=== PATIENT | male | born 1990 | race Caucasian/White ===

== ENCOUNTER 2021-02-14 19:49 | Inpatient (IN) | payer MEDICAID, SELFPAY ==
[2021-02-14 19:50] VITALS: BP 138/60; PULSE 87; RESP 16; TEMP 36.2; O2SAT 100; BMI 22.4
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
--- NOTE | 2021-02-14 21:22 | RAD_ITS ---
STUDY: X-RAY - RIGHT CLAVICLE REASON FOR EXAM: Male, 31 years old. Acute pain after trauma TECHNIQUE: 2 view(s) of the clavicle. COMPARISON: None. FINDINGS: Acute, comminuted, overlapped fracture in the midshaft of the right clavicle with soft tissue swelling Normal acromioclavicular articulation. Normal visualized sternoclavicular articulation. Normal visualized pulmonary apex. RAD/Clavicle IMPRESSION: Acute comminuted overlapped fracture in the mid right clavicle with soft tissue swelling Electronically Signed: Je Patricio MD at 22:00 EDT , Service support ,
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
[2021-02-14] MEDS: Ibuprofen 600 MG Tablet PO (21:41)
[2021-02-14] MEDS: Morphine 4 MG/ML Syringe IM (21:41)
[2021-02-14] MEDS: Diphth,Pertuss(Acell),Tet Vac 0.5 ML Vial IM (21:42)
[2021-02-14] MEDS: Morphine 4 MG/ML Syringe IV (22:18)
[2021-02-14 22:28] LABS: Absolute Lymphocyte Count 0.72 X10^3/uL (0.83-4.51); Absolute Neutrophil Count 12.2 X10^3/uL (2.0-7.7); Basophil# 0.02 X10^3/uL; Basophil% 0.1 % (0-1); Eosinophil# 0.04 X10^3/uL; Eosinophils% 0.3 % (0-5); Lymphocyte # 0.72 X10^3/ul (0.83-4.51); Lymphocyte % 5.1 % (19-41); Mean Corp Hgb Conc 33.3 g/dL (32-36); Mean Corpuscular Hgb 30.1 pg (27.0-32.0); Mean Corpuscular Volume 90.3 fL (80-94); Mean Platelet Vol. 10.7 fl (6.2-12.0); Monocyte# 0.92 X10^3/uL; Monocyte% 6.6 % (0-10); NRBC Flagged by Analyzer 0 % (0-5); Neutrophil # 12.23 X10^3/uL (2.7-7.7); Neutrophil % 87.5 % (47-70); Platelet Count 242 K/mm3 (150-450); RBC Distribution Width CV 12.1 % (11.6-14.6); RBC Distribution Width SD 40.4 fl (35.1-43.9); Red Blood Count 4.32 M/mm3 (4.6-6.2)
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
[2021-02-14 22:36] LABS: Anion Gap 5 (5-15); BUN 14 mg/dL (7-18); BUN/Creat Ratio 18.6 RATIO (10-20); Calcium,Total 8.2 mg/dL (8.5-10.1); Chloride 105 mmol/L (98-107); Creatinine, Serum 0.75 mg/dL (0.70-1.30); EST Glomerular Filtration Rate 128 mL/min (>60); Est Glom Filt Rate - Afr Amer 154 mL/min (>60); Estimated Creatinine Clearance 150.38 ml/min; Glucose 113 mg/dL (74-106); Sodium Level 138 mmol/L (136-145)
[2021-02-14 23:33] VITALS: BP 128/59; PULSE 74; RESP 16; TEMP 36.6; O2SAT 99
[2021-02-15] VITALS (12 sets, daily range): BP systolic 113–139; BP diastolic 72–101; PULSE 56–87; RESP 14–18; TEMP 36.5–37.2; O2SAT 94–100; BMI 21.6
[2021-02-15] MEDS: 0.9% Saline Lock 10 ML Syringe IV ×5 (00:19→17:57)
[2021-02-15] MEDS: 0.9% Normal Saline 1,000 ML 100 ML IV ×2 (00:19→10:20)
[2021-02-15] MEDS: Morphine 2 MG/ML Syringe IV ×5 (00:19→16:04)
--- NOTE | 2021-02-15 06:00 | EKG12_ITS ---
Test Reason : PRE-OP Blood Pressure : / mmHG Vent. Rate : 083 BPM Atrial Rate : 083 BPM P-R Int : 120 ms QRS Dur : 098 ms QT Int : 374 ms P-R-T Axes : 062 063 058 degrees QTc Int : 439 ms Normal sinus rhythm Voltage criteria for left ventricular hypertrophy Abnormal ECG No previous ECGs available Confirmed by FLOYD GRANT, GONZALO ([id number]), scientific editor NOMI NGUYEN ([id number]) on 02/17/2021 2:03:27 PM Referred By: YANETH Confirmed By:TYSON BARRIENTOS MD
[2021-02-15 06:44] LABS: Absolute Lymphocyte Count 1.32 X10^3/uL (0.83-4.51); Absolute Neutrophil Count 6.3 X10^3/uL (2.0-7.7); Basophil# 0.01 X10^3/uL; Basophil% 0.1 % (0-1); Eosinophil# 0.14 X10^3/uL; Eosinophils% 1.6 % (0-5); Hematocrit 35.6 % (40-54); Hemoglobin 11.7 g/dL (13.0-16.5); Lymphocyte # 1.32 X10^3/ul (0.83-4.51); Lymphocyte % 15.4 % (19-41); Mean Corp Hgb Conc 32.9 g/dL (32-36); Mean Corpuscular Hgb 29.8 pg (27.0-32.0); Mean Corpuscular Volume 90.8 fL (80-94); Mean Platelet Vol. 10.6 fl (6.2-12.0); Monocyte# 0.74 X10^3/uL; Monocyte% 8.7 % (0-10); NRBC Flagged by Analyzer 0 % (0-5); Neutrophil # 6.32 X10^3/uL (2.7-7.7); Platelet Count 197 K/mm3 (150-450); RBC Distribution Width CV 12.4 % (11.6-14.6); RBC Distribution Width SD 41.1 fl (35.1-43.9); Red Blood Count 3.92 M/mm3 (4.6-6.2); White Blood Count 8.6 K/mm3 (4.4-11.0)
[2021-02-15 07:17] LABS: ALB/GLOB Ratio 1.1 RATIO (0.9-2.4); AST(SGOT) 21 U/L (15-37); Alanine Aminotransfer ALT/SGPT 26 U/L (16-61); Albumin, Serum 3.1 g/dL (3.2-5.0); Alkaline Phosphatase 46 U/L (45-117); Anion Gap 6 (5-15); BUN 11 mg/dL (7-18); Calcium,Total 7.9 mg/dL (8.5-10.1); Chloride 105 mmol/L (98-107); Creatinine, Serum 0.73 mg/dL (0.70-1.30); EST Glomerular Filtration Rate 132 mL/min (>60); Est Glom Filt Rate - Afr Amer 159 mL/min (>60); Estimated Creatinine Clearance 144.45 ml/min; Globulin 2.7 g/dL (2.2-4.2); Glucose 109 mg/dL (74-106); Potassium 3.3 mmol/L (3.5-5.1); Protein, Total 5.8 g/dL (6.4-8.2); Sodium Level 139 mmol/L (136-145)
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
--- NOTE | 2021-02-15 10:30 | CASEMGMT ---
RN SUN Face to Face with patient for initial transition planning/care coordination assessment. RN CM introduced self and role at [facility]. Patient lying in bed, alert and oriented, family at bedside. Patient willing to participate in assessment and is able to answer all questions appropriately. Care providers, pharmacy, and demographics verified. Patient wishes to discharge home, will monitor for HHC vs outpatient pending progress with therapy. Patient states he has no further needs or concerns at this time. CM to follow for discharge planning needs that may arise. PCP: None, CM to provide patient with list Specialists: none Preferred Pharmacy: [facility] Insurance: [place] Prescription Benefit: yes Living Will/HPOA: none LNOK: mother, significant other Living Arrangements: Patient lives alone in a single story home with 2 steps and railing to enter. Significant other able to stay with patient. Patient is independent at home. Transportation: Family DME/HHC: paitent states he has an adjustable bed at home, denies other DME. Will monitor for DME, HHC vs Outpt therapy pending progress with therapy after surgery. Disposition Plan: HHC vs outpatient therapy Daysi LUCERO, RN, CM
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
[2021-02-15] MEDS: Cefazolin 2 GM in 0.9% Normal Saline 100 ML IV (12:00)
--- NOTE | 2021-02-15 12:00 | RAD_ITS ---
STUDY: X-RAY - RIGHT HIP REASON FOR EXAM: Male, 31 years old. GAMMA NAIL TECHNIQUE: 7 images. 117 seconds of fluoroscopy time. COMPARISON: None. FINDINGS: Fluoroscopic images demonstrate placement of fixation screw medullary fernando of the proximal femur spanning IT fracture. Gross radiographic alignment. Distal interlocking screw. RAD/Hip Min 2 Views (Portable) IMPRESSION: Fluoroscopic guidance for right IT fracture fixation. Electronically Signed: Berny Gay MD (Brooks) at 14:22 EDT , Service support ,
--- NOTE | 2021-02-15 12:09 | NURSING ---
1045, OFF UNIT VIA BED FOR SCHEDULED SURGERY
[2021-02-15] MEDS: oxyCODONE 5 MG Tablet PO ×2 (15:45→19:38)
--- NOTE | 2021-02-15 15:58 | PCM.OPRPT ---
Report of Operation Date of Procedure: 02/15/21 Pre-Operative Diagnosis: Displace, Intertrochanteric fracture right hip Post-Operative Diagnosis: same Surgery/Procedure Performed:: Open reduction, internal fixation right hip Surgeon: Garrett Jessica business continuity planning director: Trevor Cisneros Type of Anesthesia: General Anesthesiologist: Jose F Barahona Specimen's removed: none Drains: none Estimated Blood Loss (mL): 75 cc Admit VTE Documentation VTE Present on Admission: No VTE Mechan Device Prophylaxis: Thigh High CÉSAR Hose VTE Pharm Prophylaxis ordered?: Yes
[2021-02-15] MEDS: 0.9% Normal Saline 1,000 ML 125 ML IV (17:02)
[2021-02-15] MEDS: Morphine 4 MG/ML Syringe IV (17:57)
[2021-02-15] MEDS: Potassium Chloride Oral Tablet 20 MEQ 40 MEQ PO (19:38)
[2021-02-15] MEDS: Cefazolin 1 GM/50 ML BAG IV (20:55)
--- NOTE | 2021-02-15 22:06 | PCA ---
WAS DOING MY ROUNDS AND GOT TO ROOM 18 AND HE WAS OUT OF BED SITTING IN THE NURSES CHAIR WITH WHEELS, AND WAS GOING TO THE BR. I TOLD HIM THAT HE WAS BEDREST AND HE SAID HE KNEW THAT BUT HE COULDNT PEE WITHOUT SITTING ON THE TOILET. NURSE WAS NOTIFIED. PATIENTS GIRLFRIEND WAS IN THE ROOM AT THE TIME AND GOT HIM THE CHAIR.
[2021-02-16] MEDS: 0.9% Normal Saline 1,000 ML 125 ML IV (00:37)
[2021-02-16 02:57] VITALS: BP 133/72; PULSE 81; RESP 18; TEMP 37.3; O2SAT 100
[2021-02-16] MEDS: oxyCODONE 5 MG Tablet PO ×2 (02:59→10:12)
[2021-02-16] MEDS: Cefazolin 1 GM/50 ML BAG IV (03:06)
[2021-02-16 05:59] VITALS: BP 128/77; PULSE 88; RESP 16; TEMP 37.3; O2SAT 100
[2021-02-16 07:05] LABS: Absolute Lymphocyte Count 1.33 X10^3/uL (0.83-4.51); Absolute Neutrophil Count 8.8 X10^3/uL (2.0-7.7); Basophil# 0.01 X10^3/uL; Basophil% 0.1 % (0-1); Eosinophil# 0.02 X10^3/uL; Eosinophils% 0.2 % (0-5); Hematocrit 27.2 % (40-54); Lymphocyte # 1.33 X10^3/ul (0.83-4.51); Mean Corp Hgb Conc 33.1 g/dL (32-36); Mean Corpuscular Hgb 30.6 pg (27.0-32.0); Mean Corpuscular Volume 92.5 fL (80-94); Mean Platelet Vol. 11.3 fl (6.2-12.0); Monocyte# 0.94 X10^3/uL; Monocyte% 8.5 % (0-10); NRBC Flagged by Analyzer 0 % (0-5); Neutrophil # 8.78 X10^3/uL (2.7-7.7); Neutrophil % 78.9 % (47-70); Platelet Count 206 K/mm3 (150-450); RBC Distribution Width CV 12.3 % (11.6-14.6); Red Blood Count 2.94 M/mm3 (4.6-6.2); White Blood Count 11.1 K/mm3 (4.4-11.0)
--- NOTE | 2021-02-16 07:16 | PN.ORTHO_ITS ---
Subjective Subjective Patient lying in bed sleeping. Patient easy to awake. Patient states pain is very well managed. Per nursing patient did have some breakthrough bleeding from his dressing postoperatively. The dressing was reinforced. At per nursing has had no more breakthrough bleeding. Patient denies chest pain, shortness of breath, calf pain, nausea vomiting. Patient states he is ready for discharge home. Patient has no other complaints at this time. Objective Data Objective Data Vital Signs: Vital Signs Temp Pulse Resp BP Pulse Ox 99.1 F 88 16 128/77 H 100 02/16/21 05:59 02/16/21 05:59 02/16/21 05:59 02/16/21 05:59 02/16/21 05:59 Oxygen Delivery Method Room Air Weight: 70.3 kg Body Mass Index (BMI) 21.6 Intake & Output: Intake and Output for Last 24 Hours 02/14/21 02/15/21 02/16/21 23:59 23:59 23:59 Intake Total 2780.41 / 2780.41 1062.50 / 1062.50 Output Total 1250 / 1250 1000 / 1000 Balance 1530.41 / 1530.41 62.50 / 62.50 Medical Nutrition Assessment Dietitian: Nutrition Therapy Diagnosis Start: 02/15/21 12:51 Freq: Status: Active Protocol: Document 02/15/21 12:59 SLA (Rec: 02/15/21 13:00 SLA [id number]) Nutrition Malnutrition Evidence of Malnutrition Exists No Intake Problem None at this time Status Active Problem Clinical Problem None at this time Status Active Problem Recommendation Dietitian Recommendations/Changes As medically able, rec diet as tolerated to Regular Will interview pt at time of follow up re: diet/wt history, but at this time pt appears to be nutritionally stable. Lab / Micro Data Result Diagrams: 02/16/21 06:45 02/15/21 06:20 Labs: Laboratory Results - last 24 hr 02/15/21 06:20: Sodium 139, Potassium 3.3 L, Chloride 105, Carbon Dioxide 28.0, Anion Gap 6, BUN 11, Creatinine 0.73, Estim Creat Clear Calc 144.45, Est GFR (MDRD) Af Amer 159, Est GFR (MDRD) Non-Af 132, BUN/Creatinine Ratio 15.0, Glucose 109 H, Calcium 7.9 L, Total Bilirubin 0.50, AST 21, ALT 26, Alkaline Phosphatase 46, Total Protein 5.8 L, Albumin 3.1 L, Globulin 2.7, Albumin/Globulin Ratio 1.1 02/15/21 06:20: Blood Type A NEGATIVE, Antibody Screen NEGATIVE 02/16/21 06:45: WBC 11.1 H, RBC 2.94 L, Hgb 9.0 L, Hct 27.2 L, MCV 92.5, MCH 30.6, MCHC 33.1, RDW Std Deviation 42.0, RDW Coeff of Angelita 12.3, Plt Count 206, MPV 11.3, Immature Gran % (Auto) 0.300, Neut % (Auto) 78.9 H, Lymph % (Auto) 12.0 L, Vance % (Auto) 8.5, Eos % (Auto) 0.2, Baso % (Auto) 0.1, Absolute Neuts (auto) 8.8 H, Absolute Lymphs (auto) 1.33, Nucleated RBC % 0 Micro: Microbiology 02/15/21 08:45 Mucosa - Nose SARS-CoV-2 Antigen (Rapid) - Final Radiography Diagnostic Testing: Radiology Impression Hip X-Ray 02/15/21 12:00 IMPRESSION: Fluoroscopic guidance for right IT fracture fixation. Electronically Signed: Berny Gay MD (Brooks) at 14:22 EDT , Service support , Physical Exam Narrative Patient sleeping comfortably in bed. Patient easy to awake. Patient alert and oriented. Patient has some mild tenderness palpation of the right thigh. The dressing was bloodsoaked but no active bleeding was appreciated. Patient had good passive flexion extension of the knee ankle and foot. There is no calf pain.. Neurovascular is otherwise intact in the right leg. Patient's vitals and labs were reviewed noted in the medical record. Patient in no respiratory distress, speaking in full sentences. Const alert and oriented x3 Eyes PERRL Neuro CN's II-XII intact bilaterally Assessment & Plan Assessment/Plan (1) Closed intertrochanteric fracture of right femur: QUALIFIERS: Encounter type: initial encounter Fracture alignment: displaced Qualified Code(s): S72.141A - Displaced intertrochanteric fracture of right femur, initial encounter for closed fracture PLAN: 1. Continue all pain medications as prescribed. 2. Begin physical therapy weight-bear as tolerated with walker 3. Xarelto as prescribed for postop DVT prophylaxis 4. Dressing will be changed. 5. After dressing change patient can begin his daily activities with ambulation and physical therapy. If no further active bleeding is appreciated he can be discharged home today. 6. Discharge when clear with medicine 7. He will continue physical therapy at [facility] [place] 8. Shower 02/20/2021 9. Staple removal 02/26/2021 10. Follow-up in 2 weeks with tab Cisneros PA-C, call for appointment [phone].
[2021-02-16 07:27] LABS: Anion Gap 5 (5-15); BUN 7 mg/dL (7-18); Calcium,Total 7.7 mg/dL (8.5-10.1); Chloride 105 mmol/L (98-107); Creatinine, Serum 0.64 mg/dL (0.70-1.30); EST Glomerular Filtration Rate 155 mL/min (>60); Est Glom Filt Rate - Afr Amer 187 mL/min (>60); Estimated Creatinine Clearance 164.77 ml/min; Glucose 133 mg/dL (74-106); Potassium 3.9 mmol/L (3.5-5.1); Sodium Level 137 mmol/L (136-145)
[2021-02-16 08:28] VITALS: BP 137/80; PULSE 80; RESP 16; TEMP 36.7; O2SAT 100
[2021-02-16] MEDS: Rivaroxaban 10 MG Tablet PO (08:34)
--- NOTE | 2021-02-16 11:19 | DCINST_ITS ---
Discharge Instructions Diet Discharge Diet: No restrictions Activity May shower in (days): 4 Weight Bearing Status: Weight bearing as tolerated (with walker) Dressing / Incision Call your doctor if your incision/area has: Continuous Slow Oozing, Increased Redness and Foul Smelling Discharge Call your doctor if you observe: Fever of 101 or Higher, Shortness of breath, Dizziness, Swelling in the ankles, Chest pain and Increased palpitations (irregular heartbeat) Follow Up Care Test Results: Test results from this visit will be discussed in further detail at your follow-up appointment, if applicable. Discharge Plan Admission Admit Date/Time: 02/14/21 22:29 Attending Provider: Cyrus Portillo Primary Care Provider: Care Physician,No Primary Consulting Providers: Karlos Stout Discharge Orders/Prescriptions Prescriptions: New Xarelto 10 mg Tablet 10 mg PO DAILY@0600 Qty: 30 RF: 0 oxycodone 5 mg Tablet 5 mg PO Q4H PRN PRN (Reason: Pain Score 4-10) 3 Days Qty: 20 RF: 0 No Action NK RF: 0 Referrals / Follow Up: Care Physician,No Primary [Primary Care Provider] - Trevor Cisneros PA-C [PHYSICIAN FUNERAL HOME ASSOCIATE] - Within 2 Weeks Disposition Disposition (needs filled in before D/C Order can be placed): Home, Self Care
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
== END 2021-02-16 12:23 | disposition home or self-care (01) | DRG 308 ==
LOC: ED 21:13 → MS3 22:41
PROVIDERS: Orthopaedic Surgery; Admitting Provider Internal Medicine; Emergency Provider Emergency Medicine; Visit Provider Family Medicine
PROC: (CPT 27245; principal; 2021-02-15 12:05)
DX: S72.141A Displaced intertrochanteric fracture of right femur, initial encounter for closed fracture (principal); S42.021A Displaced fracture of shaft of right clavicle, initial encounter for closed fracture; F17.290 Nicotine dependence, other tobacco product, uncomplicated; Z23 Encounter for immunization; S60.312A Abrasion of left thumb, initial encounter; S60.411A Abrasion of left index finger, initial encounter; S60.413A Abrasion of left middle finger, initial encounter; S40.211A Abrasion of right shoulder, initial encounter; S20.311A Abrasion of right front wall of thorax, initial encounter; S30.811A Abrasion of abdominal wall, initial encounter; S50.311A Abrasion of right elbow, initial encounter; S60.811A Abrasion of right wrist, initial encounter; S80.211A Abrasion, right knee, initial encounter; S90.511A Abrasion, right ankle, initial encounter; X58.XXXA Exposure to other specified factors, initial encounter; Y93.55 Activity, bike riding; Y92.89 Other specified places as the place of occurrence of the external cause; Y99.8 Other external cause status
CPT/HCPCS: 36415; 73000; 73502; 76000; 80048; 80053; 83036; 85025; 86850; 86900; 86901; 87426; 90471; 90715; 93005; 97163; 97167; 99285; C1713; J7030; A4216; J2405